=== PATIENT | female | born 1935 | race African-American/Black ===

== ENCOUNTER → 2017-05-25 | Outpatient (CLI) | payer MEDICARE ==
[~2017-05-25] MED LIST: AMLODIPINE BESYL5 MG PO; ASPIR 8181 MG PO; ATORVASTATIN CA20 MG PO; FAMOTIDINE20 MG PO; FLAGYL500 MG PO; FUROSEMIDE40 MG PO; LASIX20 MG PO; METFORMIN HCL500 MG PO; METOPROLOL TART50 MG PO; RAMIPRIL5 MG PO
--- NOTE | 2017-05-25 16:32 | Diagnostic Imaging Report ---
PROCEDURE:X-RAY LEFT KNEE, THREE OR MORE VIEWS COMPARISON:Patients [facility], DX, CHEST SINGLE (PORTABLE), 05/23/2016, 5:24. INDICATIONS:KNEE PAIN FINDINGS: Generalized osteopenia, which limits evaluation of the bony structures. No acute displaced fracture or dislocation. Tricompartmental degenerative joint disease, with presence of osteophytes, predominantly in the patellofemoral compartment. Small marginal osteophytes are noted in the femoral tibial compartments. Linear calcification in the femoral compartments likely reflects chondrocalcinosis. Moderate suprapatellar effusion. Extensive vascular calcifications. CONCLUSION: Generalized osteopenia, which limits evaluation of the bone structures. No acute abnormalities, within the limitations of the study. Tricompartmental degenerative joint disease, as described. Moderate suprapatellar effusion. Chondrocalcinosis. Corey Camacho M.D. Dictated by: Corey Camacho M.D. on 05/25/2017 at 16:32 Electronically approved by: Corey Camacho M.D. on 05/25/2017 at 16:32
== END ==
LOC: RAD 13:40
PROVIDERS: ATTEND Family Medicine
DX: M25.562 Pain in left knee (principal)

== ENCOUNTER → 2017-05-26 | Outpatient (CLI) | payer MEDICARE ==
--- NOTE | 2017-05-26 16:12 | Diagnostic Imaging Report ---
PROCEDURE:EXTREMITY NON-VASCULAR ULTRASOUND COMPARISON:Left knee radiographs from 05/25/2017 INDICATIONS:LT KNEE PAIN TECHNIQUE:Grayscale images were obtained of the anterior, posterior, medial, and lateral left knee. FINDINGS: No masses or drainable fluid collections in the visualized soft tissues. No Nunez's cyst is noted in the popliteal fossa. Suprapatellar joint effusion is better seen on prior knee radiograph. CONCLUSION: No masses or drainable fluid collections in the visualized soft tissues. Dictated by: Cirilo Tierney M.D. on 05/26/2017 at 16:12 Electronically approved by: Cirilo Tierney M.D. on 05/26/2017 at 16:12
== END ==
LOC: US 14:41
PROVIDERS: ATTEND Family Medicine
DX: M25.562 Pain in left knee (principal)
CPT/HCPCS: 76882

== ENCOUNTER → 2017-06-03 | Outpatient (CLI) | payer MEDICARE ==
[2017-06-03 18:20] LABS: BODY FLUID APPEARANCE CLOUDY; BODY FLUID COLOR RED; BODY FLUID TYPE SYNOVIAL
[2017-06-03 18:21] LABS: RBC,BODY FLUID 7242 cells/uL; WBC,BODY FLUID 619 cells/uL
[2017-06-03 19:28] LABS: LYMPHOCYTES,BODY FLUID 17 %; MONO/MACROPHG,BODY FLUID 3 %; NEUTROPHILS,BODY FLUID 80 %
== END ==
LOC: LAB 16:39
PROVIDERS: ATTEND Specialist
DX: M17.12 Unilateral primary osteoarthritis, left knee (principal)
CPT/HCPCS: 36415; 87071; 87075; 87102; 87116; 87205; 87206; 89051; 89060

== ENCOUNTER → 2018-08-05 | Outpatient (CLI) | payer MEDICARE ==
--- NOTE | 2018-08-05 15:29 | Diagnostic Imaging Report ---
Exam: Right foot 3 views History: Trauma, pain Comparison: None. Findings: No fracture. Flatfoot deformity. Hallux valgus. Scattered degenerative arthrosis. Bone demineralization. Impression: No acute osseous abnormality Signed by: Dr. Jacob Espitia M.D. on 08/05/2018 3:26 PM
== END ==
LOC: RAD 14:03
PROVIDERS: ATTEND Family Medicine
DX: M79.671 Pain in right foot (principal); S99.921A Unspecified injury of right foot, initial encounter

== ENCOUNTER → 2018-12-22 | Outpatient (CLI) | payer MEDICARE ==
[~2018-12-22] MED LIST changes: +FERROUS SULFAT325 MG PO; +LOSARTAN POTAS100 MG PO; +MIRTAZAPINE15 MG PO
--- NOTE | 2018-12-22 14:21 | Diagnostic Imaging Report ---
EXAMINATION: HAND BILATERAL 3 OR MORE VIEWS INDICATION: Joint pain COMPARISON: None FINDINGS: Left hand: Mild diffuse osteopenia. Multifocal degenerative changes most notably at the CMC joint, interphalangeal joint of the thumb, and DIP joints of the second and third digits where there is vasf-rf-yphj contact and osteophyte formation. Atherosclerotic vascular calcifications. The soft tissues appear unremarkable. Right hand: No acute fracture or dislocation. Mild diffuse osteopenia. Degenerative changes most notably at the first CMC joint, interphalangeal joint of the thumb, and DLP joints of the second digit. Arterial vascular calcifications. Soft tissues appear unremarkable. No acute fracture or dislocation. IMPRESSION: No acute osseous injury. Osteoporosis of both hands, most notably at the carpometacarpal joints of the thumb, interphalangeal joint of the thumb, and distal interphalangeal joint of the index digit. Signed by: Elaine Sears MD on 12/22/2018 1:27 PM
== END ==
LOC: RAD 12:14
PROVIDERS: ATTEND Internal Medicine Rheumatology
DX: R76.8 Other specified abnormal immunological findings in serum (principal); M25.542 Pain in joints of left hand; M25.541 Pain in joints of right hand; E55.9 Vitamin D deficiency, unspecified

== ENCOUNTER → 2018-12-31 | Day surgery (SDC) | payer MEDICARE ==
[2018-12-28 16:17] LABS: BASOPHILS # (AUTO) 0.1 (0.0-0.1); BASOPHILS % 0.7 % (0.0-1.0); EOSINOPHILS # (AUTO) 0.2 (0.0-0.4); EOSINOPHILS % 2.5 % (0.0-6.0); HEMOGLOBIN 11.8 g/dL (12.0-16.0); LYMPHOCYTES # (AUTO) 1.8 (1.0-3.2); LYMPHOCYTES % 21.9 % (18.0-39.1); MEAN CORPUSCULAR HEMOGLOBIN 26.5 pg (28-32); MEAN CORPUSCULAR HGB CONC 31.1 g/dL (31-35); MEAN CORPUSCULAR VOLUME 85.4 fL (81-99); MONOCYTES # (AUTO) 0.9 (0.2-0.8); MONOCYTES % 10.9 % (4.4-11.3); NEUTROPHILS # (AUTO) 5.2 (2.1-6.9); NEUTROPHILS % 63.6 % (38.7-80.0); PLATELET COUNT 231 x10e3/uL (140-360); RED BLOOD COUNT 4.45 x10e6/uL (3.6-5.1); RED CELL DISTRIBUTION WIDTH 15.6 % (11.7-14.4)
[~2018-12-31] MED LIST changes: +AMPICILLIN 1 GM ONE; +GENTAMICIN 80MG/NS 100 ML 100 ML IV ONE; +HYOSCYAMINE 0.125 MG TAB ONE; +KETAMINE HCL INJ 50 MG/ML 10 ML VIAL ONE; +PROPOFOL IV EMULSION 10 MG/ML 50 ML VIAL ONE
--- OUTSIDE RECORDS SUMMARY | 2018-12-31 06:24 | XMS REPORT ---
[facility] Address Unknown Phone Unavailable Care Team Providers Care Railway Signal Operator Name Role Phone MIGUEL FOX Unavailable Unavailable CHEN FUENTES Unavailable Unavailable Payers Payer Name Policy Type Policy Number Effective Date Expiration Date Problems This patient has no known problems. Allergies, Adverse Reactions, Alerts Allergy Name Allergy Type Status Severity Reaction(s) Onset Date Inactive Date Treating Clinician Comments No Known Allergies DA Active U 2014-04-21 00:00:00 Medications This patient has no known medications. Results Test Description Test Time Test Comments Text Results Atomic Results Result Comments HAND BILATERAL 3 OR MORE VIEWS 2018-12-22 13:23:00 [place] [address] Patient Name: LILIBETH URIAS MR #: [id number] : 1935 Age/Sex: 83/F Req #: [id number] Adm Physician: Ordered by: MIGUEL FOX Report #: [id number] Location: [facility] Room/Bed: Procedure: [id number] DX/HAND BILATERAL 3 OR MORE VIEWS Exam Date: Exam Time: REPORT STATUS: Signed EXAMINATION: HAND BILATERAL 3 OR MORE VIEWS INDICA TION: Joint pain COMPARISON: None FINDINGS: Left hand: Mild diffuse osteopenia. Multifocal degenerative changes most notably at the CMC joint, interphalangeal joint of the thumb, and DIP joints of the second and third digits where there is iuvd-pt-hoho contact and osteophyte formation. Atherosclerotic vascular calcifications. The soft tissues appear unremarkable. Right hand: No acute fracture or dislocation. Mild diffuse osteopenia. Degenerative changes most notably at the first CMC joint, interphalangeal joint of the thumb, and DLP joints of the second digit. Arterial vascular calcifications. Soft tissues appear unremarkable. No acute fracture or dislocation. IMPRESSION: No acute osseous injury. Osteoporosis of both hands, most notably at the carpometacarpal joints of the thumb, interphalangeal joint of the thumb, and distal interphalangeal joint of the index digit. Signed by: Claudia Allan MD on 12/22/2018 1:27 PM Dictated By: CLAUDIA ALLAN MD 1327 Transcribed By: REILLY on 12/22/18 1327 COPY TO: MIGUEL FOX GLUBED 2018-11-18 13:34:00 GLUBED (test code=GLUBED) 128 mg/dL 74-106 Performed by certified screed operator at [facility] [id number] 09:16:00* Test Item Value Reference Range Comments GLUBED (test code=GLUBED) 165 mg/dL 74-106 Performed by certified screed operator at [facility] [id number] 05:36:00* Test Item Value Reference Range Comments TROPONIN-I (test code=TROPI) <0.015 ng/mL 0-0.045 CBC W/AUTO [id number] 05:02:00* Test Item Value Reference Range Comments WHITE BLOOD CELL (test code=WBC) 7.7 K/mm3 4.5-12.5 RED BLOOD CELL (test code=RBC) 3.95 mill/mm3 3.7-5.2 HEMOGLOBIN (test code=HGB) 10.5 gram/dL 11.5-15.5 RESULT VERIFIED BY REPEAT ANALYSIS HEMATOCRIT (test code=HCT) 33.9 % 36.0-46.0 MEAN CELL VOLUME (test code=MCV) 85.8 fL 80-98 MEAN CELL HGB (test code=MCH) 26.6 picogram 27.0-33.0 MEAN CELL HGB CONCETRATION (test code=MCHC) 31.0 gram/dL 33.0-36.0 RED CELL DISTRIBUTION WIDTH (test code=RDW) 14.6 % 11.6-16.2 RED CELL DISTRIBUTION WIDTH SD (test code=RDW-SD) 45.6 fL 37.0-51.0 PLATELET COUNT (test code=PLT) 194 K/mm3 150-450 MEAN PLATELET VOLUME (test code=MPV) 11.1 fL 6.7-11.0 NEUTROPHIL % (test code=NT%) 62.8 % 39.0-69.0 IMMATURE GRANULOCYTE % (test code=IG%) 0.4 % 0.0-5.0 LYMPHOCYTE % (test code=LY%) 21.4 % 25.0-55.0 MONOCYTE % (test code=MO%) 13.1 % 0.0-10.0 EOSINOPHIL % (test code=EO%) 1.9 % 0.0-5.0 BASOPHIL % (test code=BA%) 0.4 % 0.0-1.0 NUCLEATED RBC % (test code=NRBC%) 0.0 % 0-0 NEUTROPHIL # (test code=NT#) 4.84 K/mm3 1.8-7.7 IMMATURE GRANULOCYTE # (test code=IG#) 0.03 x10 3/uL 0-0.03 LYMPHOCYTE # (test code=LY#) 1.65 K/mm3 1.0-5.0 MONOCYTE # (test code=MO#) 1.01 K/mm3 0-0.8 EOSINOPHIL # (test code=EO#) 0.15 K/mm3 0.0-0.5 BASOPHIL # (test code=BA#) 0.03 K/mm3 0.0-0.2 NUCLEATED RBC # (test code=NRBC#) 0.00 K/mm3 0.0-0.1 MANUAL DIFF REQUIRED (test code=MDIFF) NO [id number] 05:00:00* Test Item Value Reference Range Comments GLYCOSYLATED HEMOGLOBIN (HA1C) (test code=GLYHGB) 5.7 % HbA1 4.8-6.0 ESTIMATED AVERAGE GLUCOSE (test code=EAG) 117 MG/DL B-TYPE NATRIURETIC [id number] 18:06:00* Test Item Value Reference Range Comments B-TYPE NATRIURETIC PEPTIDE (test code=BNP) 426 pg/mL 0-100 HEPATIC FUNCTION [id number] 16:10:00* Test Item Value Reference Range Comments TOTAL PROTEIN (test code=PROT) 8.4 g/dL 6.5-8.4 ALBUMIN (test code=ALB) 3.5 g/dL 3.4-4.8 GLOBULIN (test code=GLOB) 4.9 G/DL 1-10 ALBUMIN/GLOBULIN RATIO (test code=A/G) 0.7 RATIO 0.75-1.50 BILIRUBIN TOTAL (test code=BILT) 0.40 mg/dL 0.0-1.0 BILIRUBIN DIRECT (test code=BILD) 0.10 mg/dL 0.0-0.30 SGOT/AST (test code=AST) 17 U/L 6-32 SGPT/ALT (test code=ALT) 16 U/L 12-78 Note: Change in REFERENCE RANGE due to new reagent method. ALKALINE PHOSPHATASE TOTAL (test code=ALKP) 80 U/L 38-126 [id number] 16:10:00* Test Item Value Reference Range Comments LIPASE (test code=LIP) 90 U/L 128-270 BASIC METABOLIC [id number] 16:07:00* Test Item Value Reference Range Comments SODIUM (test code=NA) 143 mmol/L 135-148 POTASSIUM (test code=K) 3.6 mmol/L 3.5-5.1 CHLORIDE (test code=CL) 104 mmol/L 101-109 CARBON DIOXIDE (test code=CO2) 31.2 mmol/L 21-32 ANION GAP (test code=GAP) 11 mmol/L 10-20 GLUCOSE (test code=GLU) 100 mg/dL 74-106 BLOOD UREA NITROGEN (test code=BUN) 17 mg/dL 3-21 GLOMERULAR FILTRATION RATE (test code=GFR) > 60 mL/min >=60 Estimated GFR by using Modified MDRD formula.Chronic kidney disease is defined as either kidney damageor GFR <60 mL/min/1.73 m2 for >3 months. CREATININE (test code=CREAT) 1.03 mg/dL 0.55-1.3 BUN/CREATININE RATIO (test code=BUN/CREA) 16.5 10-20 CALCIUM (test code=CA) 9.6 mg/dL 8.4-10.2 [id number] 16:07:00* Test Item Value Reference Range Comments TROPONIN-I (test code=TROPI) <0.015 ng/mL 0.00-0.056 PROTHROMBIN [id number] 16:06:00* Test Item Value Reference Range Comments PROTHROMBIN TIME PATIENT (test code=PTP) 10.4 seconds 9.0-13.0 INTERNATIONAL NORMAL RATIO (test code=INR) 1.0 0.8-1.2 The therapeutic range for oral anticoagulant therapy formost indications is an international normalized ratio (INR)of between 2.0 and 3.0. The recommended therapeutic INRrange for various clinical situations is listed below: Clinical Situation INR range Pulmonary e mbolism treatment (2.0-3.0)Venous thrombosis treatmentVenous thrombosis prophylaxis (high risk surgery)Prevention of systemic embolism from: Acute myocardial infarction Valvular heart disease Atrial fibrillation Mechanical prosthetic heart valves (2.5-3.5) IS PATIENT ON ANTICOAGULANTS? NURINALYSIS [id number] 16:05:00* Test Item Value Reference Range Comments UA COLOR (test code=COLU) YELLOW YELLOW UA APPEARANCE (test code=APPU) CLEAR CLEAR UA GLUCOSE DIPSTICK (test code=DGLUU) norm mg/dL NEGATIVE UA BILIRUBIN DIPSTICK (test code=BILU) NEGATIVE mg/dL NEGATIVE UA KETONE DIPSTICK (test code=KETU) neg mg/dL NEGATIVE UA SPECIFIC GRAVITY (test code=SGU) 1.010 1.001-1.035 UA BLOOD DIPSTICK (test code=MARI) neg Juan Manuel/uL NEGATIVE UA PH DIPSTICK (test code=KUNAL) 7.0 5.0-8.0 UA PROTEIN DIPSTICK (test code=PROU) 30 (1+) mg/dL Neg-15 UA UROBILINIOGEN DIPSTICK (test code=URO) norm mg/dL 0.0-0.2 UA NITRITE DIPSTICK (test code=MATTHEW) NEGATIVE NEGATIVE UA LEUKOCYTE ESTERASE DIPSTICK (test code=LEUU) neg uL NEGATIVE UA WBC (test code=WBCU) 0-5 per HPF 0-5 UA RBC (test code=RBCU) 0-2 per HPF 0-5 UA EPITHELIAL CELLS (test code=EPIU) Few (2-5/hpf) per HPF Few UA BACTERIA (test code=BACU) TRACE per HPF NONE Urine Source? Clean CatchBASIC METABOLIC [id number] 15:59:00* Test Item Value Reference Range Comments SODIUM (test code=NA) 143 mmol/L 135-148 POTASSIUM (test code=K) 3.6 mmol/L 3.5-5.1 CHLORIDE (test code=CL) 104 mmol/L 101-109 CARBON DIOXIDE (test code=CO2) 31.2 mmol/L 21-32 ANION GAP (test code=GAP) 11 mmol/L 10-20 GLUCOSE (test code=GLU) 100 mg/dL 74-106 BLOOD UREA NITROGEN (test code=BUN) 17 mg/dL 3-21 GLOMERULAR FILTRATION RATE (test code=GFR) > 60 mL/min >=60 Estimated GFR by using Modified MDRD formula.Chronic kidney disease is defined as either kidney damageor GFR <60 mL/min/1.73 m2 for >3 months. CREATININE (test code=CREAT) 1.03 mg/dL 0.55-1.3 BUN/CREATININE RATIO (test code=BUN/CREA) 16.5 10-20 CALCIUM (test code=CA) 9.6 mg/dL 8.4-10.2 [id number] 15:59:00* Test Item Value Reference Range Comments TROPONIN-I (test code=TROPI) ng/mL 0-0.045 - XR CHEST 1 [id number] 15:50:00 Name: LILIBETH URIAS [facility] - [place] : 1935 Age/S:83 /F [address] [facility] Unit#:[id number] Loc: LIN[place], [place] [address] Phys: Kay Salazar DO Dis Date: PHONE #: [phone] Status: REG ER FAX #: [phone] Exam Date: 11/17/2018 Reason: CHEST PAIN EXAMS: CPT CODE: [id number] XR CHEST 1 V 53845 REASON FOR EXAM: CHEST PAIN EXAM ORDER DATE: 11/17/2018 2:59 PM Ordering M.Lisa: Kay Salazar DO PROCEDURE: - XR CHEST 1 V COMPARISON: 04/22/2014 FINDINGS: Portable AP frontal view of the chest obtained at 3:26 PM shows clear lungs without evidence of consolidation. There is no evidence of effusion. The heart size is within normal limits. Pulmonary vasculatures are unremarkable. IMPRESSION: Hypoaerated lungs with atelectasis of the left base at 1550 Reported and signed by: Jonathan Michelle M.D. CC: Kay Salazar DO Technologist: COLLEEN CUELLAR RT(R),CT Trnsct Data: 11/17/2018 (1550) t.ROQUE.ADRIENNE Orig Print D/T: S: 11/17/2018 (9460) PAGE 1 Signed Report CBC W/O [id number] 15:47:00* Test Item Value Reference Range Comments WHITE BLOOD CELL (test code=WBC) 9.8 K/mm3 4.5-12.5 RED BLOOD CELL (test code=RBC) 4.75 mill/mm3 3.7-5.2 HEMOGLOBIN (test code=HGB) 12.5 gram/dL 11.5-15.5 HEMATOCRIT (test code=HCT) 41.6 % 36.0-46.0 MEAN CELL VOLUME (test code=MCV) 87.6 fL 80-98 MEAN CELL HGB (test code=MCH) 26.3 picogram 27.0-33.0 MEAN CELL HGB CONCETRATION (test code=MCHC) 30.0 gram/dL 33.0-36.0 RED CELL DISTRIBUTION WIDTH (test code=RDW) 14.6 % 11.6-16.2 RED CELL DISTRIBUTION WIDTH SD (test code=RDW-SD) 47.4 fL 37.0-51.0 PLATELET COUNT (test code=PLT) 230 K/mm3 150-450 MEAN PLATELET VOLUME (test code=MPV) 11.0 fL 6.7-11.0 FOOT RIGHT [id number] 15:20:00 [place] [address] Patient Name: LILIBETH URIAS MR #: [id number] : 1935 Age/Sex: 83/F Req #: [id number] Adm Physician: Ordered by: CHEN FUENTES MD, MD Report #: [id number] Location: [facility] Room/Bed: Procedure: [id number] DX/FOOT RIGHT COMPLETE Exam Date: 08/05/18 Exam Ti me: 1420 REPORT STATUS: Signed Exam: Right foot 3 views History: Trauma, pain Comparison: None. Findings: No fracture. Flatfoot deformity. Hallux valgus. Scattered degene rative arthrosis. Bone demineralization. Impression: No acute osseous abnormality Signed by: Dr. Krunal Lara M.D. on 08/05/2018 3:26 PM Dictated By: KRUNAL LARA MD 25 Transcribed By: REILLY on 08/05/181525 COPY TO: CHEN FUENTES US EXTREMITY DEVINE NON-VAS [place] [address] Patient Name: LILIBETH URIAS MR #: [id number] : 1935 Age/Sex: 82/F Req #: [id number] Adm Physician: Ordered by: CHEN FUENTES MD, MD Report #: [id number] Location: US Room/Bed: Procedure: US/US EXTREMITY DEVINE NON-V Exam Date: Exam Time: REPORT STATUS: Sign ed PROCEDURE: EXTREMITY NON-VASCULAR ULTRASOUND COMPARISON: Left kn ee radiographs from 05/25/2017 INDICATIONS: LT KNEE PAIN TECHNIQUE: Grayscale images were obtained of the anterior, posterior, medial, and lat eral left knee. FINDINGS: No masses or drainable fluid collections in the visualized soft tissues. No Nunez's cyst is noted in the popliteal fossa. Suprapatellar joint effusion is better seen on prior knee radiograph. CONCLUSION: No masses or drainable fluid collections in the visualized soft tissues. Dictated by: Cirilo Ayala M.D. on 05/26/2017 at 16:12 Electronically approved by: Cirilo Ayala M.D. on 05/26/2017 at 16:12 Dictated By: CIRILO AYALA MD 1612 Transcribed By: ABHAY on 05/26/17 1612 COPY TO: CHEN FUENTES KNEE LEFT THREE VIEWS [place] [address] Patient Name: LILIBETH URIAS MR #: [id number] : 1935 Age/Sex: 82/F Req #: [id number] Adm Physician: Ordered by: CHEN FUENTES MD, MD Report #: [id number] Location: [facility] Room/Bed: Procedure: [id number] DX/KNEE LEFT THREE VIEWS Exam Date: 05/25/17 Exam Time: [address] ATUS: Signed PROCEDURE: X-RAY LEFT KNEE, THREE OR MORE VIEWS COMPARIS ON: [facility], DX, CHEST SINGLE (PORTABLE), 05/23/2016, 5:24. INDICATIONS: KNEE PAIN FINDINGS: Generalized osteopenia, which limits evaluation of the bony structures. No acute displaced fracture or dis location. Tricompartmental degenerative joint disease, with presence of ost eophytes, predominantly in the patellofemoral compartment. Small marginal ost eophytes are noted in the femoral tibial compartments. Linear calcification in the femoral compartments likely reflects chondrocalcinosis. Moderate supra patellar effusion. Extensive vascular calcifications. CONCLUSION: Gener alized osteopenia, which limits evaluation of the bone structures. No acute a bnormalities, within the limitations of the study. Tricompartmental degenerati ve joint disease, as described. Moderate suprapatellar effusion. Chondrocal cinosis. Corey Li M.D. Dictated by: Jesus Brown on 05/25/2017 at 16:32 Electronically approved by: Cathleen Brown on 05/25/2017 at 16:32 Dictated By: COREY IL MD Elec tronically Signed By: COREY LI MD on 05/25/17 1632 Transcribed By: ABHAY on 05/25/17 1632 COPY TO: CHEN FUENTES DIGITAL SCR [place] [address] Patient Name: LILIBETH URIAS MR #: [id number] : 1935 Age/Sex: 82/F Req #: [id number] [facility] Physician: Ordered by: GINA PARISH, CHEN Esquivel MD Report #: [id number] Location: MAMMO Room/Bed: Procedure: [id number] MG/MAMMOGRAPHY DIGITAL SCR BILAT Exam Date: 03/02/17 Exam Time: 1036 REPORT STATUS: Signed #[id number] - [id number] #BILATERAL DIGITAL SCRE ENING MAMMOGRAM WITH CAD: 03/02/2017 CLINICAL: Routine screening. Sanjay rison is made to exam dated: 03/05/2015 mammogram - [facility] [place] [facility]. Current study contains 6 films. There are scattered fibroglandular el ements in both breasts. Current study was also evaluated with a Computer Aid ed Detection (CAD) system. There are benign vascular calcifications and calc ifications in both breasts. There also are post operative findings in the ri ght breast with a scar marker present. No significant masses, calcifications , or other findings are seen in either breast. There has been no significant interval change. IMPRESSION: BENIGN There is no mammographic evidence of malignancy. A 1 year screening mammogram is recommended. The patient will be notified by letter of the results. Simon Correa Jr., D.O. cw/:03/18/2017 14:46:56 Thread Cutter Tender: Ritika HOROWITZ(R)(M), [facility] letter sent: Compared to Prior B9 Mammogram BI-RADS: 2 Benign Dictated By: SIMON CORREA DO Transcribed By: NEHEMIAH on 03/18/17 144 COPY TO: CHEN FUENTES
[2018-12-31 09:31] VITALS: BP 145/82
--- NOTE | 2018-12-31 16:04 | Operative Report ---
DATE OF PROCEDURE: 12/31/2018 SURGEON: Martin Weiss MD PROCEDURE: An EGD with biopsies and colonoscopy with polypectomy. INDICATION FOR EGD: History of melena, guaiac-positive stools. INDICATION FOR COLONOSCOPY: Surveillance colonoscopy, personal history of rectal cancer, rectal and colon polyps. MEDICATIONS: The patient was done under MAC, please see anesthesiologist's note. PROCEDURE IN DETAIL: With the patient in left lateral decubitus position, flexible fiberoptic Olympus gastroscope was introduced into the esophagus under direct visualization without any difficulty. The esophagus appeared to be within normal limits. The scope was then advanced with ease into the stomach and mucosa overlying the antrum and the body revealed some patchy erythema and low-grade to moderate edema and biopsies were obtained and sent to stain for H pylori. Pylorus was somewhat stenotic, but opened up nicely with repetitive intubation with the scope, which was advanced all the way to the second portion of the duodenum. The scope was then withdrawn slowly. Mucosa overlying the proximal second portion appeared to be within normal limits. The mucosa overlying the anterior wall of the duodenal bulb was partially raised and biopsies were obtained. The scope was then withdrawn back into the stomach and retroflexed and mucosa overlying the fundus and cardia grossly appeared to be within normal limits. The scope was then straightened out, it was subsequently withdrawn. The patient tolerated the procedure well. IMPRESSION: 1. Normal esophagus. 2. Gastritis, biopsied. Biopsies sent to stain for Helicobacter pylori. 3. Mucosa overlying the anterior wall of duodenal bulb somewhat raised, biopsied. PLAN: Follow up histology. Initiate Protonix 40 mg one p.o. q.a.m. a.c. PROCEDURE IN DETAIL: The patient was then turned around and after adequate lubrication of the anal canal, a flexible fiberoptic Olympus colonoscope was inserted into the rectum with ease and advanced all the way to the cecum. It was then withdrawn slowly. Mucosa overlying the cecum appeared to be within normal limits. There was some diverticular disease noted in the ascending colon. The transverse and descending grossly appeared to be within normal limits. Diverticular disease was also noted in the distal descending and the sigmoid colon. One polyp was hot biopsied from the sigmoid colon. Anastomotic site was noted at approximately 13 cm from the anal verge and that was intact. Also in the distal rectum, the site of rectal cancer resection revealed no evidence of recurrence. There was some internal hemorrhoids noted on retroflexion. The scope was subsequently withdrawn. The patient tolerated the procedure well. IMPRESSION: 1. Diverticulosis. 2. Approximately 4 mm polyp, sigmoid colon, hot biopsied. 3. Anastomosis of 13 cm from anal verge, intact. 4. Site of rectal cancer resection reveals no recurrence. 5. Internal hemorrhoids, none actively bleeding. PLAN: Follow up histology. Initiate high-fiber, low-fat diet. Initiate high-fiber supplement. Timing of followup colonoscopy will be discussed with family and the patient. MD ANDREA Gary/MODL /[id number] cc: Richar Whaley
== END | disposition home or self-care (01) ==
LOC: OR 06:22
PROVIDERS: ATTEND Internal Medicine Gastroenterology
DX: K29.70 Gastritis, unspecified, without bleeding (principal); Z85.038 Personal history of other malignant neoplasm of large intestine; D12.5 Benign neoplasm of sigmoid colon; K29.80 Duodenitis without bleeding; K57.30 Diverticulosis of large intestine without perforation or abscess without bleeding; Z98.0 Intestinal bypass and anastomosis status; K64.8 Other hemorrhoids; I25.10 Atherosclerotic heart disease of native coronary artery without angina pectoris; R06.09 Other forms of dyspnea; I10 Essential (primary) hypertension; E11.9 Type 2 diabetes mellitus without complications; Z98.61 Coronary angioplasty status; E78.5 Hyperlipidemia, unspecified; Z01.810 Encounter for preprocedural cardiovascular examination; Z01.812 Encounter for preprocedural laboratory examination; Z79.84 Long term (current) use of oral hypoglycemic drugs; Z86.73 Personal history of transient ischemic attack (TIA), and cerebral infarction without residual deficits
CPT/HCPCS: 36415 ×2; 43239; 45384; 82948; 85025; 88305; 88312; 93005; J1580; J2704

== ENCOUNTER → 2019-01-06 | Outpatient (CLI) | payer MEDICARE ==
[~2019-01-06] MED LIST changes: -AMPICILLIN 1 GM ONE; -GENTAMICIN 80MG/NS 100 ML 100 ML IV ONE; -HYOSCYAMINE 0.125 MG TAB ONE; -KETAMINE HCL INJ 50 MG/ML 10 ML VIAL ONE; -PROPOFOL IV EMULSION 10 MG/ML 50 ML VIAL ONE
--- NOTE | 2019-01-06 18:38 | Diagnostic Imaging Report ---
RIGHT KNEE - 2 Image(s) HISTORY: Knee pain COMPARISON: None available. FINDINGS: Oblique projection of the lateral view limits the evaluation. Bones: Diffusely decreased mineralization of the osseous structures limits bone detail. No acute displaced fracture. No aggressive osseous lesion. Joints: Lateral compartment predominant chondrocalcinosis. Minimal tricompartmental arthropathy. Soft tissues: Diffuse scattered atherosclerotic vascular calcifications. IMPRESSION: 1. No acute radiographic abnormality, within the limitations of this exam. Specifically, no acute displaced fracture. 2. 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 3. Diffuse osseous demineralization. Signed by: Dr. Juan Vaughn D.O., M.M.M. on 01/06/2019 6:35 PM
== END ==
LOC: RAD 17:28
PROVIDERS: ATTEND Family Medicine
DX: R76.8 Other specified abnormal immunological findings in serum (principal); M25.561 Pain in right knee; E55.9 Vitamin D deficiency, unspecified